=== PATIENT | female | born 1985 | race Caucasian/White ===

== ENCOUNTER 2018-12-29 00:20 | Emergency (ER) | payer MEDICAID ==
[~2018-12-29] VITALS: Ht 162.6 cm; Wt 52.2 kg
[2018-12-29 00:22] VITALS: BP 127/87
--- NOTE | 2018-12-29 01:56 | NUR ---
pt to ct via [facility]. family waiting in room for pt return.
--- NOTE | 2018-12-29 01:57 | NUR ---
pt back from ct via [facility].
[2018-12-29] MEDS ORDERED: ACETAMINOPHEN 500 MG TABLET ONE (01:59)
[2018-12-29] MEDS ORDERED: IBUPROFEN 600 MG TABLET ONE (01:59)
[2018-12-29] MEDS ORDERED: ACETAMINOPHEN 500 MG TABLET PO ONE (02:00)
[2018-12-29] MEDS ORDERED: IBUPROFEN 600 MG TABLET PO ONE (02:00)
--- NOTE | 2018-12-29 02:35 | NUR ---
LUNCH RN: PT RESTING IN ROOM. FAMILY AT BEDSIDE. NO ACUTE DISTRESS NOTED. WILL CONTINUE TO MONITOR WHILE PRIMARY RN IS ON BREAK.
--- NOTE | 2018-12-29 03:53 | NUR ---
pt d/c with d/c paperwork. pt denies any other needs pertaining to this visit. pt ambulates to registration desk with steady gait for d/c home. pt questions answered and pt verbalizes understanding of f/u care.
== END 2018-12-29 03:57 | disposition home or self-care (01) ==
LOC: ED 01:44
DX: S09.8XXA Other specified injuries of head, initial encounter (principal); F17.200 Nicotine dependence, unspecified, uncomplicated; Y04.0XXA Assault by unarmed brawl or fight, initial encounter; Y93.89 Activity, other specified; Y92.89 Other specified places as the place of occurrence of the external cause; Y99.8 Other external cause status
CPT/HCPCS: 70450; 70486; 99284